=== PATIENT | female | born 1995 | race Caucasian/White ===

== ENCOUNTER → 2016-11-18 19:20 | Outpatient (CLI) | payer SELFPAY | END | disposition home or self-care (01) | LOC: D.LABREF 19:20 | DX: R50.9 Fever, unspecified (principal) ==

== ENCOUNTER 2017-07-21 01:02 | Emergency (ER) | payer OTHER ==
[2017-07-21 02:07] LABS: BASOPHILS 0.2 % (0-2); EOSINOPHILS 1.8 % (0-7); HEMATOCRIT 37.4 % (36.0-48.0); HEMOGLOBIN 12.6 g/dL (12-16); IMMATURE GRANULOCYTES 0.2 % (0-5); LYMPHOCYTES 32.7 % (15-50); MCH 30.9 pg (26.0-34.0); MCHC 33.7 g/dL (31.0-37.0); MCV 91.7 fL (80.0-100.0); MEAN PLATELET VOLUME 10.7 fL (7.4-10.4); NEUTROPHILS 51.1 % (40-80); PLATELET COUNT 248 10x3/uL (130-400); RBC 4.08 10x6/uL (4.00-5.40); WBC 4.9 10x3/uL (4.8-10.8)
[2017-07-21 02:12] LABS: APTT 28.9 SECONDS (22.8-39.4); INR 1.08 (0.85-1.17); PROTIME 13.6 SECONDS (11.6-15.0)
[2017-07-21 02:21] LABS: ALBUMIN 3.5 g/dL (3.4-5.0); ALKALINE PHOSPHATASE 57 U/L (46-116); ALT (SGPT) 18 U/L (10-68); BILIRUBIN - TOTAL 0.37 mg/dL (0.2-1.3); CALC OSMOLALITY 277 mosm/kg (275-300); CALCIUM 8.8 mg/dL (8.5-10.1); CARBON DIOXIDE 25.6 mmol/L (21.0-32.0); CHLORIDE - SERUM 105 mmol/L (98-107); CREATININE - SERUM 0.6 mg/dL (0.6-1.3); GLUCOSE 103 mg/dL (74-106); POTASSIUM - SERUM 3.8 mmol/L (3.5-5.1); PROTEIN - SERUM 6.8 g/dL (6.4-8.2); SODIUM 140 mmol/L (136-145); UREA NITROGEN 10 mg/dL (7-18); eGFR NON AFRICAN AMERICAN > 90 mL/min (90-120)
[2017-07-21 02:22] LABS: D-DIMER-QUANTITATIVE < 0.27 ug/mLFEU (0.20-0.54)
[2017-07-21 02:38] LABS: CKMB 0.7 U/L (0.0-3.6); CREATINE KINASE 82 UL (21-215); PRO BNP 17 pg/mL (0-125)
[2017-07-21 02:40] LABS: TROPONIN-I < 0.017 ng/mL (0.000-0.060)
== END 2017-07-21 06:19 | disposition home or self-care (01) ==
LOC: D.ER 01:02
PROVIDERS: Family Medicine
DX: R07.9 Chest pain, unspecified (principal); M79.1 Myalgia

== ENCOUNTER 2018-02-11 15:30 | Inpatient (IN) | payer OTHER ==
[~2018-02-11] VITALS: Ht 167.6 cm; Wt 73.5 kg
[2018-02-11 17:03] VITALS: BP 122/80
[2018-02-11 18:05] LABS: HEMATOCRIT 41.8 % (36.0-48.0); HEMOGLOBIN 14.1 g/dL (12-16); MCH 30.1 pg (26.0-34.0); MCHC 33.7 g/dL (31.0-37.0); MCV 89.3 fL (80.0-100.0); MEAN PLATELET VOLUME 10.7 fL (7.4-10.4); RBC 4.68 10x6/uL (4.00-5.40); RDW 13.3 % (11.5-14.5); WBC 10.3 10x3/uL (4.8-10.8)
[2018-02-11 18:06] LABS: PLATELET COUNT 99 10x3/uL (130-400)
[2018-02-11 18:31] LABS: ALBUMIN 3.3 g/dL (3.4-5.0); ALKALINE PHOSPHATASE 79 U/L (46-116); ALT (SGPT) 91 U/L (10-68); BILIRUBIN - TOTAL 0.63 mg/dL (0.2-1.3); CALC OSMOLALITY 272 mosm/kg (275-300); CALCIUM 8.5 mg/dL (8.5-10.1); CARBON DIOXIDE 26.1 mmol/L (21.0-32.0); CHLORIDE - SERUM 101 mmol/L (98-107); CREATININE - SERUM 0.8 mg/dL (0.6-1.3); GLUCOSE 90 mg/dL (74-106); POTASSIUM - SERUM 4.7 mmol/L (3.5-5.1); PROTEIN - SERUM 7.4 g/dL (6.4-8.2); SODIUM 137 mmol/L (136-145); UREA NITROGEN 9 mg/dL (7-18); eGFR NON AFRICAN AMERICAN > 90 mL/min (90-120)
[2018-02-11 18:36] LABS: EOSINOPHILS 1 % (0-7); LYMPHOCYTES 63 % (15-50); MONOCYTES 6 % (2-11); NEUTROPHILS 30 % (40-80); PLATELET ESTIMATE DECREASED
[2018-02-11 20:00] VITALS: BP 105/67
[2018-02-11 20:40] VITALS: BP 122/80; BMI 26.2
[2018-02-11 22:13] LABS: APPEARANCE HAZY (CLEAR); BILIRUBIN NEGATIVE (NEGATIVE); COLOR YELLOW (YELLOW); GLUCOSE NEGATIVE (NEGATIVE); KETONE NEGATIVE (NEGATIVE); NITRITE NEGATIVE (NEGATIVE); PROTEIN NEGATIVE (NEGATIVE); UROBILINOGEN NORMAL (NORMAL)
[2018-02-11 22:14] LABS: BACTERIA MANY /hpf (NONE SEEN); RED CELLS - URINE 0-5 /hpf (0-5)
[2018-02-12] VITALS: BP 100/52
[2018-02-12 04:00] VITALS: BP 100/56
[2018-02-12] MEDS ORDERED: ZITHROMAX250 MG PO (04:50)
[2018-02-12 08:05] VITALS: BP 107/66
[2018-02-12 09:44] LABS: BASOPHILS 1.1 % (0-2); EOSINOPHILS 0.1 % (0-7); HEMATOCRIT 38.9 % (36.0-48.0); IMMATURE GRANULOCYTES 0.1 % (0-5); LYMPHOCYTES 60.6 % (15-50); MCH 29.9 pg (26.0-34.0); MCHC 33.4 g/dL (31.0-37.0); MCV 89.4 fL (80.0-100.0); MEAN PLATELET VOLUME 10.1 fL (7.4-10.4); MONOCYTES 12.2 % (2-11); NEUTROPHILS 25.9 % (40-80); PLATELET COUNT 168 10x3/uL (130-400); RBC 4.35 10x6/uL (4.00-5.40); RDW 13.1 % (11.5-14.5); WBC 7.1 10x3/uL (4.8-10.8)
[2018-02-12 09:55] LABS: ALBUMIN 2.8 g/dL (3.4-5.0); ALKALINE PHOSPHATASE 65 U/L (46-116); ALT (SGPT) 65 U/L (10-68); BILIRUBIN - TOTAL 0.52 mg/dL (0.2-1.3); CALC OSMOLALITY 273 mosm/kg (275-300); CALCIUM 7.8 mg/dL (8.5-10.1); CARBON DIOXIDE 24.6 mmol/L (21.0-32.0); CHLORIDE - SERUM 105 mmol/L (98-107); CREATININE - SERUM 0.7 mg/dL (0.6-1.3); GLUCOSE 97 mg/dL (74-106); POTASSIUM - SERUM 3.9 mmol/L (3.5-5.1); PROTEIN - SERUM 6.7 g/dL (6.4-8.2); SODIUM 138 mmol/L (136-145); UREA NITROGEN 7 mg/dL (7-18); eGFR NON AFRICAN AMERICAN > 90 mL/min (90-120)
[2018-02-12 11:13] VITALS: Ht 167.6 cm; Wt 73.5 kg
[2018-02-12 11:37] VITALS: BP 103/55
[2018-02-12 16:48] VITALS: BP 102/60
[2018-02-12 20:00] VITALS: BP 123/57
[2018-02-13] VITALS: BP 111/66
[2018-02-13 04:00] VITALS: BP 99/62
[2018-02-13 06:40] LABS: BASOPHILS 0.8 % (0-2); EOSINOPHILS 0 % (0-7); HEMATOCRIT 38.2 % (36.0-48.0); HEMOGLOBIN 12.8 g/dL (12-16); IMMATURE GRANULOCYTES 0.2 % (0-5); LYMPHOCYTES 66.2 % (15-50); MCH 29.8 pg (26.0-34.0); MCHC 33.5 g/dL (31.0-37.0); MEAN PLATELET VOLUME 9.8 fL (7.4-10.4); MONOCYTES 10.6 % (2-11); NEUTROPHILS 22.2 % (40-80); PLATELET COUNT 162 10x3/uL (130-400); RBC 4.29 10x6/uL (4.00-5.40); RDW 13.1 % (11.5-14.5); WBC 5.9 10x3/uL (4.8-10.8)
[2018-02-13 06:54] LABS: ALBUMIN 2.7 g/dL (3.4-5.0); ALKALINE PHOSPHATASE 62 U/L (46-116); ALT (SGPT) 55 U/L (10-68); BILIRUBIN - TOTAL 0.35 mg/dL (0.2-1.3); CALC OSMOLALITY 278 mosm/kg (275-300); CARBON DIOXIDE 26.3 mmol/L (21.0-32.0); CHLORIDE - SERUM 106 mmol/L (98-107); CREATININE - SERUM 0.7 mg/dL (0.6-1.3); GLUCOSE 94 mg/dL (74-106); POTASSIUM - SERUM 4.3 mmol/L (3.5-5.1); PROTEIN - SERUM 6.3 g/dL (6.4-8.2); SODIUM 141 mmol/L (136-145); UREA NITROGEN 6 mg/dL (7-18); eGFR NON AFRICAN AMERICAN > 90 mL/min (90-120)
[2018-02-13 08:28] VITALS: BP 102/59
[2018-02-13] MEDS ORDERED: VIBRAMYCIN 100100 MG PO (11:24)
[2018-02-13] MEDS ORDERED: VALTREX500 MG PO (11:24)
[2018-02-13] MEDS ORDERED: ONCOLOGY MOUTHWASH PO (11:24)
[2018-02-13 11:31] VITALS: BP 98/62
[2018-02-15 13:21] LABS: CYTOMEGALOVIRUS AB IGG <0.60 U/mL (0.00-0.59); EBV - EARLY ANTIGEN AB IGG >150.0 U/mL (0.0-8.9); EBV - NUCLEAR ANTIGEN AB IGG <18.0 U/mL (0.0-17.9); EBV VIRAL CAPSID AB IGM >160.0 U/mL (0.0-35.9)
== END 2018-02-13 13:53 | disposition home or self-care (01) | DRG 864 ==
LOC: D.MS 15:30 → D.SDCHOLD 02-13 10:54 → D.MS 02-13 10:56
PROVIDERS: Family Medicine; Student in an Organized Health Care Education/Training Program
DX: R50.9 Fever, unspecified (principal); K12.1 Other forms of stomatitis; J02.9 Acute pharyngitis, unspecified; K59.00 Constipation, unspecified; R30.0 Dysuria; F41.8 Other specified anxiety disorders; R59.1 Generalized enlarged lymph nodes; D69.6 Thrombocytopenia, unspecified; J32.9 Chronic sinusitis, unspecified; E86.0 Dehydration; R47.02 Dysphasia

== ENCOUNTER 2018-04-18 13:33 | Emergency (ER) | payer OTHER ==
[~2018-04-18] VITALS: Ht 167.6 cm; Wt 75.0 kg
[~2018-04-18 13:33] MED LIST: ONCOLOGY MOUTHWASH PO; VALTREX500 MG PO; VIBRAMYCIN 100100 MG PO; ZITHROMAX250 MG PO
[2018-04-18 13:41] VITALS: Ht 167.6 cm; Wt 75.0 kg
[2018-04-18 14:20] LABS: BASOPHILS 0 % (0-2); EOSINOPHILS 0 % (0-7); HEMATOCRIT 45.2 % (36.0-48.0); HEMOGLOBIN 15.6 g/dL (12-16); IMMATURE GRANULOCYTES 0.3 % (0-5); LYMPHOCYTES 2.9 % (15-50); MCH 30.9 pg (26.0-34.0); MCHC 34.5 g/dL (31.0-37.0); MCV 89.5 fL (80.0-100.0); MEAN PLATELET VOLUME 10.5 fL (7.4-10.4); MONOCYTES 3.4 % (2-11); NEUTROPHILS 93.4 % (40-80); RBC 5.05 10x6/uL (4.00-5.40); WBC 10.2 10x3/uL (4.8-10.8)
[2018-04-18 14:21] LABS: PLATELET COUNT 263 10x3/uL (130-400)
[2018-04-18 14:33] LABS: ALKALINE PHOSPHATASE 55 U/L (46-116); ALT (SGPT) 16 U/L (10-68); BILIRUBIN - TOTAL 0.89 mg/dL (0.2-1.3); CALC OSMOLALITY 273 mosm/kg (275-300); CARBON DIOXIDE 26.8 mmol/L (21.0-32.0); CHLORIDE - SERUM 101 mmol/L (98-107); CREATININE - SERUM 0.9 mg/dL (0.6-1.3); GLUCOSE 122 mg/dL (74-106); POTASSIUM - SERUM 3.7 mmol/L (3.5-5.1); PROTEIN - SERUM 7.9 g/dL (6.4-8.2); SODIUM 136 mmol/L (136-145); UREA NITROGEN 15 mg/dL (7-18); eGFR NON AFRICAN AMERICAN 83 mL/min (90-120)
[2018-04-18 14:34] LABS: HCG URINE NEGATIVE (NEGATIVE)
[2018-04-18 14:49] LABS: APPEARANCE CLEAR (CLEAR); BILIRUBIN NEGATIVE (NEGATIVE); COLOR YELLOW (YELLOW); GLUCOSE NEGATIVE (NEGATIVE); KETONE LARGE mg/dL (NEGATIVE); NITRITE NEGATIVE (NEGATIVE); PROTEIN TRACE mg/dL (NEGATIVE); SPECIFIC GRAVITY 1.015 (1.005-1.020); UROBILINOGEN NORMAL (NORMAL)
[2018-04-18 14:53] LABS: BACTERIA FEW /hpf (NONE SEEN); RED CELLS - URINE 0-5 /hpf (0-5); WHITE CELLS - URINE OCC /hpf (0-5)
[2018-04-18] MEDS ORDERED: ZOFRAN8 MG PO (15:04)
[2018-04-18] MEDS ORDERED: TORADOL10 MG PO (15:04)
[2018-04-18 17:13] VITALS: BP 124/76
== END 2018-04-18 17:17 | disposition home or self-care (01) ==
LOC: D.ER 13:33
PROVIDERS: Emergency Medicine
DX: R11.2 Nausea with vomiting, unspecified (principal); R19.7 Diarrhea, unspecified

== ENCOUNTER → 2019-03-21 05:41 | Outpatient (CLI) | payer OTHER ==
[2018-04-18 13:41] VITALS: BMI 26.7
[~2019-03-21 05:41] MED LIST changes: +CYTOTEC200 MCG PO; +OMEPRAZOLE20 M1 PO; +TORADOL10 MG PO; +TYLENOL W/CODEI1 TAB PO; +ZOFRAN8 MG PO
[2019-03-21 06:51] LABS: APPEARANCE HAZY (CLEAR); COLOR YELLOW (YELLOW)
[2019-03-21 06:52] LABS: BILIRUBIN NEGATIVE (NEGATIVE); GLUCOSE NEGATIVE (NEGATIVE); KETONE NEGATIVE (NEGATIVE); NITRITE NEGATIVE (NEGATIVE); PROTEIN NEGATIVE (NEGATIVE); UROBILINOGEN NORMAL (NORMAL)
== END | disposition home or self-care (01) ==
LOC: D.LDO 05:41
PROVIDERS: ATTEND Obstetrics & Gynecology
DX: O26.893 Other specified pregnancy related conditions, third trimester (principal); Z3A.34 34 weeks gestation of pregnancy

== ENCOUNTER 2019-04-25 11:11 | Inpatient (IN) | payer OTHER, MEDICAID ==
[~2019-04-25] VITALS: Ht 167.6 cm; Wt 95.7 kg
[~2019-04-25 11:11] MED LIST changes: -CYTOTEC200 MCG PO; -TYLENOL W/CODEI1 TAB PO
[2019-04-25 12:15] VITALS: BP 114/78; Ht 167.6 cm; Wt 95.7 kg
[2019-04-25 12:33] LABS: HEMATOCRIT 38.4 % (36.0-48.0); HEMOGLOBIN 12.7 g/dL (12-16); MCH 30.7 pg (26.0-34.0); MCHC 33.1 g/dL (31.0-37.0); MCV 92.8 fL (80.0-100.0); RBC 4.14 10x6/uL (4.00-5.40); RDW 13.7 % (11.5-14.5); WBC 12.2 10x3/uL (4.8-10.8)
[2019-04-25 14:48] LABS: UDS - AMPHET NEGATIVE QUAL (NEGATIVE); UDS - BARB NEGATIVE QUAL (NEGATIVE); UDS - BENZO NEGATIVE QUAL (NEGATIVE); UDS - COCAINE NEGATIVE QUAL (NEGATIVE); UDS - OPIATE NEGATIVE QUAL (NEGATIVE); UDS - PCP NEGATIVE QUAL (NEGATIVE); UDS - THC NEGATIVE QUAL (NEGATIVE)
[2019-04-26 08:11] LABS: RAPID PLASMA REAGIN Non Reactive (Non Reactive)
[2019-04-26 16:55] VITALS: BP 114/77
--- NOTE | 2019-04-26 16:56 | NUR ---
SITTING UP IN BED. FAMILY AT BEDSIDE. NO COMPLAINTS AT THIS TIME.
--- NOTE | 2019-04-26 18:42 | NUR ---
PATIENT SITTING UP IN BED. FAMILY AT BEDSIDE. NO COMPLAINTS AT THIS TIME.
--- NOTE | 2019-04-26 20:00 | NUR ---
PATIENT AMBULATED TO POST ROOM 1257. PATIENT AMBULATED WITH STEADY GAIT WITH ASSISTANCE. ORIENTED TO ROOM AND CALL SYSTEM. DENIES ANY NEEDS OR CONCERNS.
[2019-04-26 20:15] VITALS: BP 114/67
--- NOTE | 2019-04-26 20:15 | NUR ---
PATIENT SITTING UP IN BED. LYING IN OPEN CRIB AT BEDSIDE. ASSESSMENT AND VITAL SIGNS DONE. REPIRATIONS AT EASE. LUNG SOUNDS CLEAR IN ALL MEEK. HEART REGULAR RATE AND RHYTHM. ABDOMEN SOFT, NONTENDER. BOWEL SOUNDS PRESENT IN ALL QUADRANTS. FUNDUS FIRM, MIDLINE, AT UMBILICUS. LOCHIA RUBRA, SMALL AMOUNT NOTED ON NITIN PAD. +1 EDEMA NOTED TO BLE. IV NOTED TO L HAND. IV SALINE LOCKED. NO REDNESS OR EDEMA NOTED. PATIENT STATES PAIN 1 OUT OF 10. REQUESTING PAIN MEDICATION DUE TO PERINEAL PAIN. TYLENOL 1000 MG AND TORADOL 10 MG ADMINISTERED PO. USE OF DERMAPLAST SPRAY INSTRUCTED TO PATIENT. PATIENT VERBALLIZED UNDERSTANDING. ICE PACK APPLIED TO PERINEUM. PATIENT DENIES ANY FURTHER NEEDS OR CONCERNS.
--- NOTE | 2019-04-26 21:50 | NUR ---
PATIENT AMBULATED TO BATHROOM WITH STEADY GAIT. VOIDED 800 CC'S OF CLEAR YELLOW URINE. PATIENT DEMONSTRATED KNOWLEDGE ON USE OF NITIN BOTTLE AND DERMAPLAST SPRAY. PADS CHANGED. PATIENT AMBULATED BACK TO BED WITH STEADY GAIT. DENIES ANY FURTHER NEEDS.
--- NOTE | 2019-04-26 23:45 | NUR ---
PATIENT LYING QUIETLY IN BED WITH EYES CLOSED. RESPIRATIONS AT EASE. NO SIGNS OF DISTRESS NOTED. SIDE RAILS UP X 2, BED IN LOWEST POSITION, C/L AND WATER WITHIN REACH.
--- NOTE | 2019-04-27 01:55 | NUR ---
PATIENT LYING IN BED WITH EYES CLOSED. RESPIRATIONS AT EASE. EASILY AROUSED. PATIENT DENIES PAIN. SCHEDULED TYLENOL 1000 MG ADMINISTERED PO AT THIS TIME. DENIES ANY FURTHER NEEDS. BED IN LOWEST POSITION, SIDE RAILS UP X 2, C/L AND WATER WITHIN REACH.
[2019-04-27 04:00] VITALS: BP 111/69
--- NOTE | 2019-04-27 04:00 | NUR ---
PATIENT LYING IN BED WITH EYES CLOSED. RESPIRATIONS AT EASE. EASILY AROUSED. DENIES ANY PAIN. PATIENT STATES SHE VOIDED. EMPTIED 800 CC'S OF CLEAR YELLOW URINE FROM HAT. PATIENT DENIES ANY NEEDS. BED IN LOWEST POSITION, SIDE RAILS UP X 2, C/L AND WATER WITHIN REACH.
--- NOTE | 2019-04-27 06:00 | NUR ---
PATIENT SITTING UP IN BED INFANT. DENIES ANY NEEDS AT THIS TIME. DENIES ANY PAIN. BED IN LOWEST POSITION, SIDE RAILS UP X 2, C/L AND WATER WITHIN REACH.
--- NOTE | 2019-04-27 07:45 | NUR ---
SLEEPING. SIGNIFICANT OTHER AT BEDSIDE. AT BEDSIDE IN OPEN CRIB. NO COMPLAINTS AT THIS TIME.
[2019-04-27 08:15] VITALS: BP 105/51
--- NOTE | 2019-04-27 09:15 | NUR ---
IN TO SEE PATIENT. BABY. SIGNIFICANT OTHER AT BEDSIDE. IV D/C'D. CATHETER INTACT. PRESSURE APPLIED. BANDAGE AND 2X2 APPLIED OVER INSERTION SITE.
--- NOTE | 2019-04-27 11:26 | NUR ---
REVIEWED DISCHARGE INSTRUCTIONS WITH PATIENT. STATES UNDERSTANDING.
--- NOTE | 2019-04-27 12:00 | NUR ---
LUNCH TRAY SERVED BY DIETARY, PT DENIES ALL NEEDS AT THIS TIME. SRUP X2, CALL LIGHT AND PHONE WITHIN REACH.
--- NOTE | 2019-04-27 16:07 | NUR ---
TO PT'S ROOM, PT IS INFANT. SEE EMAR FOR ALL MEDS ADM BY THIS RN. LARGE ICE WATER AND SPRITE SERVED TO PT AT HER REQUEST. PERIPANTIES/MESHPANTIES PROVIDED TO PT FOR DISCHARGE. PT DENIES ALL OTHER NEEDS AT THIS TIME.
--- NOTE | 2019-04-27 17:35 | NUR ---
INFANT HAS BEEN DISCHARGED BY Paola FORREST LPN. PT STATES SHE WANTS TO WALK OUT TO VEHICLE INSTEAD OF WHEELCHAIR. PT OFF UNIT IN STABLE CONDITION WITH HER SIG OTHER CARRYING INFANT IN CARSEAT.
[2019-04-30] MEDS ORDERED: CYTOTEC200 MCG PO (15:15)
[2019-04-30] MEDS ORDERED: TYLENOL W/CODEI1 TAB PO (15:17)
== END 2019-04-27 17:40 | disposition home or self-care (01) | DRG 806 ==
LOC: D.LD 11:11
PROVIDERS: ADMIT Obstetrics & Gynecology; ATTEND Obstetrics & Gynecology
PROC: 10E0XZZ Delivery of Products of Conception, External Approach (ICD-10-PCS; principal; 2019-04-26)
PROC: 0HQ9XZZ Repair Perineum Skin, External Approach (ICD-10-PCS; 2019-04-26)
DX: O70.0 First degree perineal laceration during delivery (principal); O72.1 Other immediate postpartum hemorrhage; Z37.0 Single live birth; Z3A.39 39 weeks gestation of pregnancy